=== PATIENT | male | born 1980 | race Hispanic/Latino ===

== ENCOUNTER 2022-03-27 13:20 | Emergency (ER) | payer BC ==
[~2022-03-27] VITALS: Ht 172.7 cm; Wt 109.8 kg
[2022-03-27] MEDS ORDERED: LOSARTAN POTAS100 MG PO (13:29)
[2022-03-27] MEDS ORDERED: SIMVASTATIN40 MG PO (13:29)
[2022-03-27] MEDS ORDERED: AUGMENTIN 500-1 EACH PO (13:58)
[2022-03-27] MEDS ORDERED: KETOROLAC TROME10 MG PO (13:58)
[2022-03-27] MEDS ORDERED: CORTISPORIN-TC10 M1 RIGHT EAR (13:58)
[2022-03-27] MEDS ORDERED: CEFTRIAXONE 1 GM VIAL IM ONE (14:00)
[2022-03-27] MEDS ORDERED: CEFTRIAXONE 1 GM VIAL ONE (14:30)
== END 2022-03-27 14:21 | disposition home or self-care (01) ==
LOC: FSED 13:49
DX: H66.91 Otitis media, unspecified, right ear (principal); I10 Essential (primary) hypertension; E78.5 Hyperlipidemia, unspecified; Z79.899 Other long term (current) drug therapy
CPT/HCPCS: 96372; 99283; J0696